=== PATIENT | female | born 1990 | race African-American/Black ===

== ENCOUNTER 2017-12-08 10:57 | Emergency (ER) | payer MEDICAID ==
[~2017-12-08] VITALS: Ht 152.4 cm; Wt 70.0 kg
[2017-12-08] MEDS ORDERED: MAGNESIUM/ALUMINUM HYDROXIDE/SIMETHICONE 30ML UDC PO STA (11:38)
[2017-12-08] MEDS ORDERED: ONDANSETRON 4MG ODT PO STA (11:38)
[2017-12-08] MEDS ORDERED: FAMOTIDINE 20MG TABLET PO ONE (11:45)
[2017-12-08 12:07] LABS: BASOPHILS % 0.9 % (0.0-2.0); EOSINOPHILS % 0.3 % (0.0-5.0); HEMATOCRIT. 37.7 % (36.0-48.0); HEMOGLOBIN. 12.7 g/dL (12.0-16.0); LYMPHOCYTES % 36.1 % (20.0-50.0); MEAN CORPUSCULAR HEMOGLOBIN 28.6 pg (28.0-32.0); MEAN CORPUSCULAR VOLUME 84.9 fL (81.0-99.0); MEAN PLATELET VOLUME 8.6 fl (7.4-10.4); MONOCYTES % 8.7 % (2.0-8.0); PLATELET 422 x1000/uL (130-400); RED BLOOD CELL COUNT 4.43 mill/uL (4.2-5.4)
[2017-12-08 12:10] LABS: CHLORIDE 105 mEq/L (98-107)
[2017-12-08 12:11] LABS: CLARITY URINE CLOUDY (CLEAR); COLOR URINE DARK YELLOW (YELLOW); KETONES URINE 3+ (NEGATIVE); LEUKOCYTE ESTERASE URINE 2+ (NEGATIVE); NITRITE URINE POSITIVE (NEGATIVE); OCCULT BLOOD URINE NEGATIVE (NEGATIVE); PH URINE 8.5 (4.5-8.0); PROTEIN URINE 1+ (NEGATIVE); SPECIFIC GRAVITY URINE 1.029 (1.005-1.030)
[2017-12-08 12:14] LABS: PROTHROMBIN TIME 10.3 sec (9.1-11.1)
[2017-12-08] MEDS ORDERED: ONDANSETRON HCL 4MG/2ML INJ IV ONE (12:15)
[2017-12-08] MEDS ORDERED: FAMOTIDINE 20MG/2ML VIAL IV ONE (12:15)
[2017-12-08 14:51] VITALS: BP 125/67
== END 2017-12-08 15:20 | disposition home or self-care (01) ==
LOC: ER 10:57
DX: O23.41 Unspecified infection of urinary tract in pregnancy, first trimester (principal); O99.511 Diseases of the respiratory system complicating pregnancy, first trimester; J45.909 Unspecified asthma, uncomplicated; O26.891 Other specified pregnancy related conditions, first trimester; R11.2 Nausea with vomiting, unspecified; Z3A.01 Less than 8 weeks gestation of pregnancy
CPT/HCPCS: 36415; 76700; 76801; 76817; 80053; 81003; 81025; 83690; 84702; 85025; 85610; 87077; 87086; 87186; 96374; 96375; 99285; J2405; J3490; Q0162; Z7610